=== PATIENT | female | born 1980 ===

== ENCOUNTER 2021-05-21 11:29 | Emergency (ER) | payer OTHER, SELFPAY ==
--- NOTE | ~2021-05-21 | XR_ITS ---
EXAMINATION: XR CHEST CLINICAL INFORMATION: Cough COMPARISON: None TECHNIQUE: Frontal view of the chest was obtained. FINDINGS: No significant abnormality is noted involving the heart, lungs, mediastinum, bony thorax or soft tissues. XR/XR chest 1V IMPRESSION: Unremarkable examination.
[2021-05-21 11:41] VITALS: BP 159/92; PULSE 101; RESP 16; TEMP 36.8; O2SAT 96; BMI 26.5
--- NOTE | 2021-05-21 11:44 | ED.URI ---
HPI - URI/Sore Throat General Chief Complaint: Upper Respiratory Symptoms Stated Complaint: cough Time Seen by Provider: 05/21/21 11:44 Source: patient Mode of arrival: ambulatory Limitations: no limitations History of Present Illness MD elicited complaint: cough, sore throat and other (ear pain) Onset (ago): week(s) (3) Consistency: progressively worsening Severity: moderate Description of mucous: clear Able to tolerate fluids by mouth: Yes Exacerbating factors: swallowing Relieving factors: nothing Associated symptoms: chills, nasal congestion, sore throat and cough Treatments prior to arrival: none Related Data Previous Rx's Medication Instructions Recorded amoxicillin 875 mg-potassium 1 tab PO BID #14 tab 05/21/21 clavulanate 125 mg tablet (Augmentin) benzonatate 100 mg capsule 100 mg PO TID PRN #30 cap 05/21/21 (Tessalon Perlleon) ofloxacin 0.3 % ear drops 10 drp OTIC (EARS) DAILY 7 Days #5 05/21/21 ml prednisone 20 mg tablet 40 mg PO DAILY 5 Days #10 tab 05/21/21 Allergies Allergy/AdvReac Type Severity Reaction Status Date / Time latex [LATEX] Allergy Intermediate CONTACT Unverified 04/06/20 16:51 DERMATITIS Review of Systems Review of Systems: Constitutional : No Weight loss, No Fever, pos Chills, No Fatigue, No Malaise ENT/Mouth : pos sore throat, No Rhinorrhea, pos ear pain Eyes: No Eye Pain, No Swelling, No Redness Cardiovascular : No Chest Pain, No SOB, No Dyspnea on Exertion, No Orthopnea, No Edema, No Palpitations Respiratory : pos Cough, pos Sputum, No Wheezing Gastrointestinal : No Nausea, No Vomiting, No Diarrhea, No Constipation, No abdominal Pain, No Hematochezia, No Melena Genitourinary : No Dysuria, No Urinary Frequency, No Hematuria, Musculoskeletal : No joint pain, No Myalgias, No Joint Swelling Skin : No Skin Lesions, No rash Neuro : No Weakness, No Numbness, No Dizziness, No Headache Psych : No Anxiety/Panic, No Depression Heme/Lymph: No Bruising, No Bleeding,No Lymphadenopathy Endocrine : No Polyuria, No Polydipsia All other systems reviewed and are negative [facility] Past Medical History Attestation statement: The following information was validated with the patient. Medical History No known health problems Social History Social History (Updated 05/21/21 @ 12:08 by Jolene Sebastian DO) Patient Tobacco Use Status: Current everyday Tobacco user Use of substances other than those prescribed or required for medical reasons: No Advance Directives: No Advance Directives Information Provided: No Physical Exam Vital Signs: Vital Signs: Last Vital Signs Temp 98.3 F 05/21/21 11:41 Pulse 101 H 05/21/21 11:41 Resp 16 05/21/21 11:41 BP 159/92 H 05/21/21 11:41 Pulse Ox 96 05/21/21 11:41 Body Mass Index 26.5 Appearance: Alert. Oriented X3. No acute distress. Eyes: Pupils equal, round and reactive to light. ENT: Pharynx mild erythema mild swelling no signs of [employer], handling secretions normal voice, R ear diffuse bulging, loss of landmarks, mod hyperemia to the upper R superior portion of ear drum no hemotympanum noted Neck: Normal inspection. Neck supple. CVS: Normal heart rate and rhythm. Pulses normal. Respiratory: No respiratory distress. Breath sounds normal. Abdomen: Soft and nontender. Skin: Skin warm and dry. Normal skin color. Normal skin turgor. Extremities: No lower extremity edema. No calf ttp Neuro: Oriented X 3. No motor deficit. No sensory deficit. Course Course Course Narrative: will treat as bronchitis and AOM MDM - URI/Sore Throat MDM Narrative Medical decision making narrative: 41 yo female with c/o URI and cough for 3 weeks - sore throat (no concern for deeper space infection) will need strep/covid swab, her R ear has some mild erythema and area of hyperemia noted on superior aspect will treat with oral and gtt for AOM Lab Data Labs: Lab Results 05/21/21 05/21/21 Range/Units 13:04 13:05 COVID-19 (TEJAL) Negative (Negative) COVID-19 Clin Com See Note S. pyogenes GrpA LADY Negative (Negative) Discharge Plan Discharge Clinical Impression: Bronchitis Otitis media Qualifiers: Otitis media type: suppurative Chronicity: acute Laterality: right Recurrence: non-recurrent Spontaneous tympanic membrane rupture: without spontaneous rupture Qualified Code(s): H66.001 - Acute suppurative otitis media without spontaneous rupture of ear drum, right ear Patient Disposition: Home, Self-Care Instructions: How to Use Ear Drops (ED), Ear Infection (ED), Acute Bronchitis (ED) Additional Instructions: return to ED for any worsening symptoms or concerns NEGATIVE COVID NEGATIVE STREP NO WATER IN R EAR FOR 7 DAYS Prescriptions: New amoxicillin-pot clavulanate [Augmentin] 875-125 mg tablet 1 tab PO BID Qty: 14 RF: 0 ofloxacin 0.3 % drops 10 drp otic (ears) DAILY 7 Days Qty: 5 RF: 0 benzonatate [Tessalon Perles] 100 mg capsule 100 mg PO TID PRN (Reason: cough) Qty: 30 RF: 0 prednisone 20 mg tablet 40 mg PO DAILY 5 Days Qty: 10 RF: 0 Stand Alone Forms: Work/School Release
[2021-05-21 13:25] LABS: IDNOW Serial# 08D9AD1C
[2021-05-21 13:26] LABS: Strep A Nucleic Acid Negative (Negative)
[2021-05-21 13:33] LABS: COVID-19 Test Negative (Negative); IDNOW Serial# 9DD0AD1C
[2021-05-21] MEDS: Amoxicillin/Potassium Clav 875 MG TABLET PO (13:47)
== END 2021-05-21 13:50 | disposition home or self-care (01) ==
PROVIDERS: Emergency Provider Emergency Medicine
DX: H66.001 Acute suppurative otitis media without spontaneous rupture of ear drum, right ear (principal); Z20.822 Contact with and (suspected) exposure to COVID-19
CPT/HCPCS: 36415; 71045; 87635; 87651; 99283; 99284

== ENCOUNTER → 2021-12-11 10:06 | Outpatient (BNVA) | payer OTHER, SELFPAY | PROVIDERS: Visit Provider Internal Medicine | DX: Z51.81 Encounter for therapeutic drug level monitoring (principal); F10.10 Alcohol abuse, uncomplicated | CPT/HCPCS: 80305; 99202; 99212 ==

== ENCOUNTER → 2021-12-24 14:37 | Outpatient (BNVA) | payer OTHER, MEDICAID, SELFPAY | PROVIDERS: Visit Provider Internal Medicine | DX: Z51.81 Encounter for therapeutic drug level monitoring (principal); F10.10 Alcohol abuse, uncomplicated | CPT/HCPCS: 80305 ==

== ENCOUNTER → 2022-01-07 15:23 | Outpatient (BNVA) | payer OTHER, MEDICAID, SELFPAY | PROVIDERS: Visit Provider Internal Medicine | DX: Z51.81 Encounter for therapeutic drug level monitoring (principal); F10.10 Alcohol abuse, uncomplicated | CPT/HCPCS: 80305 ==

== ENCOUNTER 2022-01-26 10:55 | Emergency (ER) | payer OTHER, MEDICAID, SELFPAY ==
[2022-01-26 11:05] VITALS: BP 128/78; BP 154/100; PULSE 81; PULSE 96; RESP 18; TEMP 36.4; O2SAT 100; O2SAT 98; BMI 27.1
--- NOTE | 2022-01-26 11:18 | ED_ITS ---
HPI - Alcohol General Chief Complaint: ETOH/Substance Use Stated Complaint: Alcohol withdraw Time Seen by Provider: 01/26/22 11:03 Source: patient and EMS Mode of arrival: EMS Limitations: no limitations History of Present Illness HPI narrative: 42-year-old female with a history of alcohol abuse here seeking detox. Patient says she drinks 1 pt of vodka daily. Her last drink was just prior to arrival. She denies additional substance use. She was taking Vivitrol but stops taking this 1 week ago. She denies suicidal ideations. She has no physical complaints. Related Data Previous Rx's Medication Instructions Recorded folic acid 1 mg tablet 1 mg PO DAILY 30 days #30 tabs 12/11/21 naltrexone microspheres 380 mg 380 mg IM Q4W 30 days #1 ea 12/11/21 intramuscular suspension,extended release (Vivitrol) thiamine HCl (vitamin B1) 50 mg 50 mg PO DAILY #30 tabs 12/11/21 tablet clonidine HCl 0.1 mg tablet 0.1 mg PO TID 7 days #21 tabs 12/27/21 hydroxyzine HCl 25 mg tablet 25 mg PO TID PRN itching 10 days 01/01/22 #30 tabs naltrexone 50 mg tablet 50 mg PO DAILY #30 tabs 01/01/22 Allergies Allergy/AdvReac Type Severity Reaction Status Date / Time latex [LATEX] Allergy Intermediate CONTACT Verified 01/07/22 15:35 DERMATITIS Sulfa (Sulfonamide Allergy Mild acid reflux Verified 01/07/22 15:35 Antibiotics) Review of Systems 2 Review of Systems: Yes all other systems are reviewed and are negative Constitutional: Constitutional: Reports no additional constitutional complaints, Denies body ache(s), Denies chills, Denies fever(s), Denies heada angely(s) and Denies weakness Eyes: Eyes: Reports no additional eye complaints and Denies change in vision ENT: Reports system reviewed and no additional complaints, except as documented, Denies dizziness, Denies headache(s), Denies nasal congestion, Denies nasal discharge and Denies neck pain Cardiovascular: Cardiovascular: Reports no additional cardiovascular c omplaints, Denies chest pain, Denies leg edema and Denies dyspnea Respiratory: Respiratory: Reports no additional respiratory complaints, Denies cough and Denies dyspnea Gastrointestinal: Gastrointestinal: Reports no additional gastrointestinal complaints, Denies abdominal pain, Denies diarrhea, Denies nausea and Denies vomiting Genitourinary: Genitourinary: Reports no additional female genitourinary complaints and Denies urinary incontinence Musculoskeletal: Musculoskeletal: Reports no additional musculoskeletal complaints, Denies back pain, Denies arthralgias, Denies joint swelling, Denies neck pain, Denies numbness and Denies tingling Integumentary/Breasts: Skin/Breast: Reports system reviewed and no additional complaints, except as docu and Denies rash Neurologic: Reports system reviewed and no additional complaints, except as documented, Denies dizziness, Denies headache(s), Denies numbness, Denies tingling and Denies weakness PMFSH Past Medical History Attestation statement: The following information was validated with the patient. Source: old records reviewed and nursing notes reviewed Medical History Alcohol abuse No known health problems Social History Social History Alcohol intake: never Patient Tobacco Use Status: Current everyday Tobacco user Advance Directives: No Advance Directives Information Provided: No Physical Exam ED Vital Signs: Vital Signs - 24 hr 01/26/22 11:05 01/26/22 11:32 01/26/22 14:00 Temperature 97.5 F 98.2 F Pulse Rate 81 77 69 Respiratory Rate 18 18 16 Blood Pressure 128/78 130/96 H Pulse Oximetry 100 97 92 Oxygen Delivery Method Room Air Room Air Room Air BMI result Body Mass Index 27.1 Const General: anxious Orientation/consciousness: patient oriented x3 Limitations: no limitations [facility] Head: Yes normal to inspection Ears: hearing grossly normal bilaterally Eyes General: appearance normal, both eyes and all related structures Pupils: Equal, round and reactive pupils present Neck Neck: Yes normal visual inspection Chest Chest palpation & inspection: normal inspection of the chest Resp Effort & Inspection: normal respiratory effort Auscultation: clear to auscultation bilaterally Cardio Rate: regular rate Rhythm: regular rhythm Peripheral pulses: Peripheral pulses 2+ throughout GI Inspection: Yes normal to inspection Palpation (GI): Soft to palpation and nontender Skin General skin exam: no rashes or lesions noted Neuro General: patient oriented x3 and moves all extremities Cranial nerves: Yes Equal, round and reactive pupils present Cognition (Neuro): normal cognition Extrem General: Yes normal to inspection Course Course Course Narrative: [id number] 8 per nursing. will give ativan 1mg Reevaluation(s) Reevaluation #1: Reviewed labs which show elevated AST and ALT which are from alcohol use. Sodium 147. Likely mild dehydration. All other labs unremarkable. Patient has received 1 L of IV fluid. I spoke to our recovery assistant. Patient hopefully wi ll have a bed at [facility]. She does need to do a an intake Reevaluation #2: Patient did intake with [facility] detox. The care team arranged transportation and she was discharged to detox. She walked out of the emergency room with a steady gait. Her vitals are stable. She is alert and oriented. MDM - Alcohol MDM Narrative Medical decision making narrative: 42-year-old female here seeking detox for alcohol use disorder. No suicidal thoughts No physical complaints No concern for acute ingestion or trauma Will need labs, drug screen, COVID screen. Once medically cleared will need recovery assistant involvement Medical Records Attestation: I reviewed the patient's medical records. Lab Data Attestation: I reviewed the patient's lab results. Result diagrams: 01/26/22 11:57 01/26/22 11:57 Labs: Lab Results 01/26/22 01/26/22 01/26/22 Range/Units 11:57 11:57 11:57 WBC 8.8 (4.8-10.8) X10*3/uL RBC 4.21 (4.20-5.50) X10*6/uL Hgb 15.2 (12.0-16.0) g/dl Hct 42.3 (37.0-47.0) % MCV 100.5 H (80.0-98.0) fL MCH 36.1 H (27.0-33.0) pg MCHC 35.9 H (31.0-35.0) g/dl RDW 12.9 (11.0-16.0) % Plt Count 229 (160-400) X10*3/uL MPV 9.5 (9.4-12.3) fL Immature Gran % (Auto) 0.3 (0.0-0.4) % Neut % (Auto) 53.1 (45-73) % Lymph % (Auto) 36.7 (20-40) % [place] % (Auto) 5.9 (2-11) % Eos % (Auto) 3.1 (0-4) % Baso % (Auto) 0.9 (0-2) % Lymph # (Auto) 3.2 (1.2-4.9) X10*3/uL [place] # (Auto) 0.5 (0.1-1.2) X10*3/uL Eos # (Auto) 0.3 (0.0-0.4) X10*3/uL Baso # (Auto) 0.1 (0.0-0.2) X10*3/uL Abs Immat Gran (auto) 0.03 (0.00-0.03) X10*3/uL Absolute Neuts (auto) 4.7 (2.0-8.3) x10*3/uL Absolute Nucleated RBC 0.000 (0.0-0.012) X10*3/uL Nucleated RBC % (auto) 0.0 (0.0-0.2) /100WBC Sodium 147 H (135-145) mmol/L Potassium 3.6 (3.3-5.1) mmol/L Chloride 106 (96-108) mmol/L Carbon Dioxide 23 (22-29) mmol/L Anion Gap 22 H (12-20) BUN 8 L (9-16) mg/dL Creatinine 0.75 (0.5-1.4) mg/dL Estim Creat Clear Calc 86.0 Estimated GFR > 60 Random Glucose 99 (60-115) mg/dL Calcium 9.1 (8.4-10.2) mg/dL Magnesium 2.0 (1.6-2.6) mg/dL Total Bilirubin 0.4 (0.0-1.0) mg/dL Direct Bilirubin 0.2 (0.0-0.5) mg/dL AST 158 H (5-31) U/L ALT 131 H (0-31) U/L Alkaline Phosphatase 81 (39-117) U/L Total Protein 7.2 (6.5-8.0) g/dL Albumin 4.5 (3.5-5.0) g/dL Urine Test (NEGATIVE) Urine Opiates Screen (Not Detect) Urine Fentanyl Screen (Not Detect) Ur Barbiturates Screen (Not Detect) Ur Phencyclidine Scrn (Not Detect) Ur Amphetamines Screen (Not Detect) U Benzodiazepines Scrn (Not Detect) Urine Cocaine Screen (Not Detect) U Marijuana (THC) Screen (Not Detect) Ethyl Alcohol 376 H* mg/dL COVID-19 (TEJAL) (Negative) COVID-19 Clin Com 01/26/22 01/26/22 01/26/22 Range/Units 11:57 11:57 11:58 WBC (4.8-10.8) X10*3/uL RBC (4.20-5.50) X10*6/uL Hgb (12.0-16.0) g/dl Hct (37.0-47.0) % MCV (80.0-98.0) fL MCH (27.0-33.0) pg MCHC (31.0-35.0) g/dl RDW (11.0-16.0) % Plt Count (160-400) X10*3/uL MPV (9.4-12.3) fL Immature Gran % (Auto) (0.0-0.4) % Neut % (Auto) (45-73) % Lymph % (Auto) (20-40) % [place] % (Auto) (2-11) % Eos % (Auto) (0-4) % Baso % (Auto) (0-2) % Lymph # (Auto) (1.2-4.9) X10*3/uL [place] # (Auto) (0.1-1.2) X10*3/uL Eos # (Auto) (0.0-0.4) X10*3/uL Baso # (Auto) (0.0-0.2) X10*3/uL Abs Immat Gran (auto) (0.00-0.03) X10*3/uL Absolute Neuts (auto) (2.0-8.3) x10*3/uL Absolute Nucleated RBC (0.0-0.012) X10*3/uL Nucleated RBC % (auto) (0.0-0.2) /100WBC Sodium (135-145) mmol/L Potassium (3.3-5.1) mmol/L Chloride (96-108) mmol/L Carbon Dioxide (22-29) mmol/L Anion Gap (12-20) BUN (9-16) mg/dL Creatinine (0.5-1.4) mg/dL Estim Creat Clear Calc Estimated GFR Random Glucose (60-115) mg/dL Calcium (8.4-10.2) mg/dL Magnesium (1.6-2.6) mg/dL Total Bilirubin (0.0-1.0) mg/dL Direct Bilirubin (0.0-0.5) mg/dL AST (5-31) U/L ALT (0-31) U/L Alkaline Phosphatase (39-117) U/L Total Protein (6.5-8.0) g/dL Albumin (3.5-5.0) g/dL Urine Test NEGATIVE (NEGATIVE) Urine Opiates Screen Not Detected (Not Detect) Urine Fentanyl Screen Not Detected (Not Detect) Ur Barbiturates Screen Not Detected (Not Detect) Ur Phencyclidine Scrn Not Detected (Not Detect) Ur Amphetamines Screen Not Detected (Not Detect) U Benzodiazepines Scrn Not Detected (Not Detect) Urine Cocaine Screen Not Detected (Not Detect) U Marijuana (THC) Screen POSITIVE H (Not Detect) Ethyl Alcohol mg/dL COVID-19 (TEJAL) Negative (Negative) COVID-19 Clin Com See Note Discharge Plan Discharge Clinical Impression: Alcohol use disorder, moderate, dependence Patient Disposition: Xfer Other Transfer Details: [facility] detox Instructions: Alcohol Use Disorder (ED) Additional Instructions: Go direct to detox Prescriptions: No Action clonidine HCl 0.1 mg tablet 0.1 mg PO TID 7 Days Qty: 21 0RF hydroxyzine HCl 25 mg tablet 25 mg PO TID PRN (Reason: itching) 10 Days Qty: 30 0RF naltrexone 50 mg tablet 50 mg PO DAILY Qty: 30 0RF thiamine HCl (vitamin B1) 50 mg tablet 50 mg PO DAILY Qty: 30 5RF folic acid 1 mg tablet 1 mg PO DAILY 30 Days Qty: 30 5RF Vivitrol 380 mg suspension,extended rel recon 380 mg IM Q4W 30 Days Qty: 1 1RF Referrals: Physician,None [Primary Care Provider] -
[2022-01-26 11:32] VITALS: BP 130/96; PULSE 77; RESP 18; TEMP 36.8; O2SAT 97
[2022-01-26] MEDS: LORazepam 2 MG/ML VIAL 1 MG IVPUSH (11:52)
[2022-01-26] MEDS: 0.9 % Sodium Chloride 1,000 ML 999 ML IV (11:59)
--- NOTE | 2022-01-26 12:03 | PC.NURSE ---
PT IS BEING RUDE TO STAFF STATING WE ARE NOT DOING ANYTHIG FOR HER AND THAT'S WHY SHE CAME BY AMB, PT IS DEMANDING IVF AND MEDICATIONS, STATES WE DON'T KNOW ANYTHING AND SHE IS IN WITHDRAWAL AND NEEDS DETOX. LABS HAVE BEEN COMPLEATED IVF DONE AND ATIVAN GIVEN.
[2022-01-26 12:06] LABS: MANUAL DIFF FLAG NO
[2022-01-26 12:08] LABS: Basophils Absolute Auto 0.1 X10*3/uL (0.0-0.2); Basophils Percent Auto 0.9 % (0-2); Eosinophils Absolute Auto 0.3 X10*3/uL (0.0-0.4); Eosinophils Percent Auto 3.1 % (0-4); Hematocrit 42.3 % (37.0-47.0); Hemoglobin 15.2 g/dl (12.0-16.0); Imm Gran Abs Auto 0.03 X10*3/uL (0.00-0.03); Imm Gran Pct Auto 0.3 % (0.0-0.4); Lymphocytes Absolute Auto 3.2 X10*3/uL (1.2-4.9); Lymphocytes Percent Auto 36.7 % (20-40); Mean Corpuscular HGB Conc 35.9 g/dl (31.0-35.0); Mean Corpuscular Hemoglobin 36.1 pg (27.0-33.0); Mean Corpuscular Volume 100.5 fL (80.0-98.0); Mean Platelet Volume 9.5 fL (9.4-12.3); Monocytes Absolute Auto 0.5 X10*3/uL (0.1-1.2); Monocytes Percent Auto 5.9 % (2-11); Neutrophils Absolute Auto 4.7 x10*3/uL (2.0-8.3); Neutrophils Percent Auto 53.1 % (45-73); Platelet Count 229 X10*3/uL (160-400); Red Blood Count 4.21 X10*6/uL (4.20-5.50); Red Cell Distribution Width 12.9 % (11.0-16.0); White Blood Count 8.8 X10*3/uL (4.8-10.8)
[2022-01-26 12:10] LABS: UPreg QC Valid YES; Urine Pregnancy NEGATIVE (NEGATIVE)
[2022-01-26 12:22] LABS: COVID-19 Test Negative (Negative)
[2022-01-26 12:28] LABS: Ethanol 376 mg/dL
[2022-01-26 12:31] LABS: Amphetamine Screen Urine Not Detected (Not Detect); Barbiturates, Urine Not Detected (Not Detect); Benzodiazepines Screen Urine Not Detected (Not Detect); Cannabinoid Screen Urine POSITIVE (Not Detect); Cocaine Screen Urine Not Detected (Not Detect); Fentanyl, urine Not Detected (Not Detect); Opiate Screen Urine Not Detected (Not Detect); Phencyclidine Screen Urine Not Detected (Not Detect)
[2022-01-26 12:34] LABS: Alanine Aminotransferase 131 U/L (0-31); Albumin Level 4.5 g/dL (3.5-5.0); Alkaline Phosphatase 81 U/L (39-117); Anion Gap 22 (12-20); Aspartate Amino Transferase 158 U/L (5-31); Bilirubin Direct 0.2 mg/dL (0.0-0.5); Bilirubin Total 0.4 mg/dL (0.0-1.0); Blood Urea Nitrogen 8 mg/dL (9-16); Calcium 9.1 mg/dL (8.4-10.2); Carbon Dioxide 23 mmol/L (22-29); Chloride 106 mmol/L (96-108); Estimated Glomerular Filt Rate > 60; Glucose Random 99 mg/dL (60-115); Potassium 3.6 mmol/L (3.3-5.1); Sodium 147 mmol/L (135-145); Total Protein 7.2 g/dL (6.5-8.0)
[2022-01-26 14:00] VITALS: PULSE 69; RESP 16; O2SAT 92
--- NOTE | 2022-01-26 14:27 | PC.NURSE ---
Patient arrived seeking detox. Agitated and reporting I am going through withdrawal . Ativan provided. Patient is sleeping. Seen by care team for detox placement. Patient denies SI/HI.
--- NOTE | 2022-01-26 18:15 | MHC.RECOVSUP ---
Recovery Support note: Patient is a 42 year old Tajik speaking female who presented to [facility] ED seeking detox. Patient reports she has been binge drinking for 7 days and wants to break this cycle. Patient was referred to [facility] and accepted for admission. Patient did not want to wait in the hospital and requested discharge. Plan for refinery operator light ends recovery to call patient at [phone] to coordinate Lyft to facility. Discussed case with ED provider.
== END 2022-01-26 16:44 | disposition other institution (70) ==
PROVIDERS: Nurse Practitioner Family; Emergency Provider Emergency Medicine
DX: F10.239 Alcohol dependence with withdrawal, unspecified (principal); Y90.8 Blood alcohol level of 240 mg/100 ml or more; Z79.899 Other long term (current) drug therapy; Z20.822 Contact with and (suspected) exposure to COVID-19
CPT/HCPCS: 36415; 80048; 80076; 80307; 81025; 82077; 83735; 85025; 87635; 96361; 96374; 99284; J2060

== ENCOUNTER 2022-02-05 14:06 | Outpatient (REF) | payer OTHER, MEDICAID, SELFPAY ==
[2022-02-05 15:56] LABS: Alanine Aminotransferase 165 U/L (0-31); Albumin Level 4.2 g/dL (3.5-5.0); Alkaline Phosphatase 67 U/L (39-117); Aspartate Amino Transferase 38 U/L (5-31); Bilirubin Direct < 0.2 mg/dL (0.0-0.5); Bilirubin Total 0.2 mg/dL (0.0-1.0); Total Protein 6.8 g/dL (6.5-8.0)
== END 2022-02-05 14:07 | disposition home or self-care (01) ==
LOC: HO.LAB 14:06
PROVIDERS: Visit Provider Internal Medicine
DX: F10.10 Alcohol abuse, uncomplicated (principal); Z51.81 Encounter for therapeutic drug level monitoring
CPT/HCPCS: 36415; 80076; 80305

== ENCOUNTER → 2022-03-05 10:13 | Outpatient (BNVA) | payer OTHER, SELFPAY | PROVIDERS: Visit Provider Nurse Practitioner Psychiatric/Mental Health | DX: F10.20 Alcohol dependence, uncomplicated (principal) | CPT/HCPCS: 99212 ==

== ENCOUNTER → 2022-03-12 09:24 | Outpatient (BNVA) | payer OTHER, SELFPAY | PROVIDERS: Visit Provider Nurse Practitioner Psychiatric/Mental Health | DX: F10.20 Alcohol dependence, uncomplicated (principal); Z51.81 Encounter for therapeutic drug level monitoring; Z32.02 Encounter for pregnancy test, result negative | CPT/HCPCS: 80305; 81025; 96372; 99212 ==

== ENCOUNTER → 2022-04-09 08:56 | Outpatient (BNVA) | payer OTHER, SELFPAY | PROVIDERS: Visit Provider Nurse Practitioner Psychiatric/Mental Health | DX: Z51.81 Encounter for therapeutic drug level monitoring (principal); F10.20 Alcohol dependence, uncomplicated | CPT/HCPCS: 80305; 81025; 96372; 99212 ==

== ENCOUNTER 2022-04-19 07:35 | Outpatient (REF) | payer OTHER, SELFPAY ==
[2022-04-19 07:57] LABS: COVID-19 Test Positive (Negative); IDNOW Serial# 55D5AD1C
== END 2022-04-19 07:36 | disposition home or self-care (01) ==
LOC: HO.LAB 07:35
PROVIDERS: Visit Provider Internal Medicine
DX: Z20.822 Contact with and (suspected) exposure to COVID-19 (principal)
CPT/HCPCS: 87635; C9803

== ENCOUNTER 2022-04-27 13:21 | Emergency (ER) | payer OTHER, SELFPAY ==
[2022-04-27 13:43] VITALS: BP 109/88; BP 139/72; PULSE 101; PULSE 93; RESP 18; TEMP 37.1; O2SAT 96; O2SAT 99; BMI 27.4
--- NOTE | 2022-04-27 14:20 | PC.NURSE ---
pt currently refusing labs at this time, wants to speak with provider
--- NOTE | 2022-04-27 14:29 | PC.NURSE ---
pt is verbally abusive to staff and yelling, security was called, Dr. Rowell at bedside and spoke with daughter on the phone.
--- NOTE | 2022-04-27 14:38 | ED.ALCOHOL ---
HPI - Alcohol General Chief Complaint: Psychiatric Symptoms Stated Complaint: crisis Time Seen by Provider: 04/27/22 13:51 Source: patient, family (Spoke with daughter over the phone), EMS and old records reviewed Mode of arrival: EMS Limitations: altered mental status (Likely due to intoxication) History of Present Illness HPI narrative: 42-year-old female came in by ambulance intoxicated, patient was drinking home admitted to drinking lots of alcohol today, was speaking with her daughter over the phone made a gesture of does not want to be around daughter called 911 who came and picked up the patient from home, on arrival patient appear alcohol intoxicated, belligerent, using abusive language to the staff patient is not redirectable, patient throw food tray on the staff and on the floor, I spoke with the daughter over the phone who also and ER nurse explained to her the need for chemical and likely physical restraint if needed at this point patient will be Section 12 and will be given Zyprexa IM. Patient is well known to have a severe alcohol dependence. Related Data Previous Rx's Medication Instructions Recorded clonidine HCl 0.1 mg tablet 0.1 mg PO TID 7 days #21 tabs 12/27/21 hydroxyzine HCl 25 mg tablet 25 mg PO TID PRN itching 10 days 01/01/22 #30 tabs naltrexone 50 mg tablet 50 mg PO DAILY #30 tabs 03/01/22 folic acid 1 mg tablet 1 mg PO DAILY 30 days #30 tabs 03/12/22 thiamine HCl (vitamin B1) 50 mg 50 mg PO DAILY #30 tabs 03/12/22 tablet naltrexone microspheres 380 mg 380 mg IM Q4W 30 days #1 ea 04/09/22 intramuscular suspension,extended release (Vivitrol) Allergies Allergy/AdvReac Type Severity Reaction Status Date / Time latex [LATEX] Allergy Intermediate CONTACT Verified 04/09/22 09:00 DERMATITIS Sulfa (Sulfonamide Allergy Mild acid reflux Verified 04/09/22 09:00 Antibiotics) Review of Systems Review of Systems: Yes Unobtainable due to mental status PMFSH Past Medical History Medical History Alcohol abuse No known health problems Social History Social History Alcohol intake: never Patient Tobacco Use Status: Current everyday Tobacco user Advance Directives: No Advance Directives Information Provided: No Physical Exam ED Vital Signs: Vital Signs - 24 hr 04/27/22 13:43 Temperature 98.7 F Pulse Rate 93 Respiratory Rate 18 Blood Pressure 109/88 Pulse Oximetry 96 Oxygen Delivery Method Room Air BMI result Body Mass Index 27.4 Vital signs have been reviewed as appeared to be correct. Blood pressure normal. Heart rate normal. Respiration rate normal. Temperature normal. Oxygen saturation normal. Appearance: Intoxicated, agitated, belligerent, using inappropriate abusive language toward the staff. Head: Normal external exam. Eyes: PERRLA. EOMI. Conjunctiva and sclera normal. Eyelids normal. ENT: TM's Normal. Pharynx normal. Uvula midline. Moist mucous membranes. No trismus noted. No drooling noted. No muffled voice noted. Neck: Normal inspection. Neck supple. FROM. No adenopathy. Thyroid Normal. No meningeal signs. No neck mass noted. CVS: Normal heart rate and rhythm. Heart sound normal. No murmurs noted. Pulses normal throughout. Respiratory: No respiratory distress. Painless inspiration. Breath sounds normal. No wheezes/rales/rhonchi noted. Chest nontender. No accessory muscle usage noted or decreased air movement noted. Abdomen: Soft and nontender. Bowel sounds normal in all 4 quadrants. No distention noted. No organomegaly noted. No visible injury noted. Back: No CVA tenderness. Full range of motion noted. Skin: Skin warm and dry. Normal skin color. Normal skin turgor. No rashes/lesions/lacerations noted. Extremities: No lower extremity edema. Extremities exhibit normal range of motion. Extremities nontender. Neuro: Intoxicated Cranial nerve exam: II-XII are grossly intact No motor deficit. No sensory deficit. Reflexes normal. Course Course Course Narrative: 42-year-old female with history of severe alcohol independency, came in in alcohol intoxication, patient has been acting inappropriately and aggressive with the staff, spoke with the daughter over the phone the patient mentioned on the phone that she does not want to be around with vague suicidal gesturing, given the patient behavior patient needed a chemical restraint for safety of the patient and the staff. Patient will be section 12 and will be given Zyprexa IM. Reevaluation(s) Reevaluation #1: Patient is of 4 points restraining, patient is more calmer, patient now can carry a good conversation, patient is coherent, awake, alert, oriented x4, patient declined SI, declined HI, no hallucination. Patient's daughter at the bedside who is willing to take the patient home feel safe to discharge the patient with daughter. Patient is offering apologies to the staff for being belligerent and aggressive behavior. Time: 16:28 Discharge Plan Discharge Clinical Impression: Alcohol abuse Patient Disposition: Home, Self-Care Instructions: Abuse of Alcohol (ED) Additional Instructions: Seek immediate medical attention if he feels suicidal, or hearing voices, please call the detox programs number the provided to you try to enroll into detox program.. Prescriptions: No Action clonidine HCl 0.1 mg tablet 0.1 mg PO TID 7 Days Qty: 21 0RF hydroxyzine HCl 25 mg tablet 25 mg PO TID PRN (Reason: itching) 10 Days Qty: 30 0RF naltrexone 50 mg tablet 50 mg PO DAILY Qty: 30 0RF folic acid 1 mg tablet 1 mg PO DAILY 30 Days Qty: 30 5RF thiamine HCl (vitamin B1) 50 mg tablet 50 mg PO DAILY Qty: 30 5RF Vivitrol 380 mg suspension,extended rel recon 380 mg IM Q4W 30 Days Qty: 1 5RF Referrals: Physician,None [Primary Care Provider] -
[2022-04-27] MEDS: OLANZapine 10 MG VIAL IM (14:55)
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
--- NOTE | 2022-04-27 15:04 | MHC.CARE ---
Addendum entered by Pippa Cruz, [facility] 04/27/22 17:09: Documentation clarification per nursing Dr. Rowell requested Pt to be placed on section 12 Original Note: CARE Team attempted to provided education to Pt regarding the crisis process. Pt became agitated swearing at t/w you are a fucking bitch . Pt pushed food tray agresively in the direction of t/w and continued to be verbally aggressive. At this time Pt is not appropriate to engage with clinically due to level of Pts dysregulation. Plan reviewed Dr. Rowell. Pt to remain on Section 12 A for evaluation, once medially cleared.
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
--- NOTE | 2022-04-27 15:51 | MHC.CARE ---
Care Team completed [facility] smart sheet.
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
== END 2022-04-27 18:53 | disposition home or self-care (01) ==
PROVIDERS: Emergency Provider Emergency Medicine
DX: F10.129 Alcohol abuse with intoxication, unspecified (principal); Y90.9 Presence of alcohol in blood, level not specified; R45.6 Violent behavior; F17.200 Nicotine dependence, unspecified, uncomplicated
CPT/HCPCS: 96372; 99283; 99284

== ENCOUNTER 2022-12-22 09:07 | Emergency (ER) | payer OTHER, SELFPAY ==
[2022-12-22 09:14] VITALS: BP 143/81; PULSE 91; O2SAT 98
[2022-12-22 09:17] VITALS: BP 128/86; PULSE 91; RESP 19; TEMP 36.6; O2SAT 99; BMI 26.2
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
--- NOTE | 2022-12-22 09:45 | PC.NURSE ---
after being seen by the provider, the pt was being registered at the bedside and jumped up and was yelling about it taking too long, pt swore mult times and continued to yell on her way out the door, speech clear, steady gait
== END 2022-12-22 09:54 | disposition left against medical advice (07) ==
PROVIDERS: Emergency Provider Internal Medicine
DX: S01.81XA Laceration without foreign body of other part of head, initial encounter (principal); S09.93XA Unspecified injury of face, initial encounter; R51.9 Headache, unspecified; Y04.2XXA Assault by strike against or bumped into by another person, initial encounter; Y93.9 Activity, unspecified; Y92.9 Unspecified place or not applicable; Y99.9 Unspecified external cause status; Z79.899 Other long term (current) drug therapy; F17.200 Nicotine dependence, unspecified, uncomplicated; Z71.6 Tobacco abuse counseling
CPT/HCPCS: 99281; 99283; 99284

== ENCOUNTER 2023-04-01 07:52 | Emergency (ER) | payer BC, OTHER, SELFPAY ==
--- NOTE | ~2023-04-01 | XR_ITS ---
EXAMINATION: XR CHEST CLINICAL INFORMATION: Cough COMPARISON: 05/21/2021 TECHNIQUE: Frontal view of the chest was obtained. FINDINGS: Lungs are well expanded and clear. No consolidation, pleural effusion or pneumothorax. The old hazy opacities at the medial bases correspond to the normal paracardiac fat pads. Cardiac silhouette has normal size and contour. The skeletal structures are unremarkable. XR/XR chest 1V IMPRESSION: No evidence of pneumonia. No acute cardiopulmonary findings.
--- NOTE | 2023-04-01 07:56 | ECG_ITS ---
Test Reason : chest pain Blood Pressure : / mmHG Vent. Rate : 080 BPM Atrial Rate : 080 BPM P-R Int : 128 ms QRS Dur : 076 ms QT Int : 402 ms P-R-T Axes : 019 053 048 degrees QTc Int : 463 ms Normal sinus rhythm Normal ECG No previous ECGs available Referred By: Generic ED Physician Electronically Signed By:TERI RHODES
[2023-04-01 08:08] VITALS: BP 114/71; PULSE 79; RESP 16; TEMP 36.6; O2SAT 98; BMI 28.7
[2023-04-01 08:23] LABS: MANUAL DIFF FLAG NO
[2023-04-01 08:25] LABS: Basophils Absolute Auto 0.1 X10*3/uL (0.0-0.2); Basophils Percent Auto 0.6 % (0-2); Eosinophils Absolute Auto 0.6 X10*3/uL (0.0-0.4); Eosinophils Percent Auto 6.2 % (0-4); Hematocrit 40.1 % (37.0-47.0); Imm Gran Abs Auto 0.02 X10*3/uL (0.00-0.03); Imm Gran Pct Auto 0.2 % (0.0-0.4); Lymphocytes Percent Auto 20.9 % (20-40); Mean Corpuscular HGB Conc 34.9 g/dl (31.0-35.0); Mean Corpuscular Hemoglobin 37.2 pg (27.0-33.0); Mean Corpuscular Volume 106.6 fL (80.0-98.0); Mean Platelet Volume 9.3 fL (9.4-12.3); Monocytes Absolute Auto 0.7 X10*3/uL (0.1-1.2); Neutrophils Absolute Auto 6.1 x10*3/uL (2.0-8.3); Neutrophils Percent Auto 65.1 % (45-73); Platelet Count 224 X10*3/uL (160-400); Red Blood Count 3.76 X10*6/uL (4.20-5.50); Red Cell Distribution Width 13.5 % (11.0-16.0); White Blood Count 9.3 X10*3/uL (4.8-10.8)
[2023-04-01 08:42] LABS: Alanine Aminotransferase 14 U/L (0-31); Albumin Level 4.1 g/dL (3.5-5.0); Alkaline Phosphatase 54 U/L (39-117); Anion Gap 12 (12-20); Aspartate Amino Transferase 13 U/L (5-31); Bilirubin Total 0.3 mg/dL (0.0-1.0); Blood Urea Nitrogen 9 mg/dL (9-16); Calcium 9.5 mg/dL (8.4-10.2); Carbon Dioxide 21 mmol/L (22-29); Chloride 111 mmol/L (96-108); Creatinine Clr Calc Pharmacy 88.7; Estimated Glomerular Filt Rate > 60; Glucose Random 106 mg/dL (60-115); Potassium 4.3 mmol/L (3.3-5.1); Sodium 140 mmol/L (135-145); Total Protein 6.8 g/dL (6.5-8.0)
--- NOTE | 2023-04-01 09:33 | ED.GENADULT ---
HPI - General Adult General Chief complaint: Upper Respiratory Symptoms Stated complaint: R side chest pain/cough Time Seen by Provider: 04/01/23 09:11 Source: patient History of Present Illness HPI narrative: 43 year old female with history of anxiety, AUD and finished detox Friday, presents to ED for evaluation of productive cough for 3 weeks, as well as right-sided, constant chest pain for 1.5 weeks. Says she has been coughing up thick, brown/green/yellow sputum. Reports right-sided chest pain just under her breast, wrapping around rib, like a dull pressure at rest, but becomes sharp with cough, inspiration, or movement. Also reports feeling occasional tiny pops when she breathes in. Reports headache, sinus pressure, nasal congestion, sweats, diarrhea, bilateral LE tightness. Reports that she was evaluated at detox and given 3 out of 5 doses of azithromycin before being discharged. Reports 15 pack-year smoking history, maternal family history of from [place] at age 61. Denies chills, sore throat, nausea, vomiting, urinary symptoms. Denies recent travel, sick contacts, hormone use. MD complaint: cough, chest pain Onset (ago): week(s) Location: chest Quality: aching, sharp, dull and constant Pain Consistency: constant Relieving factors: rest Exacerbating factors: movement and other (Cough, inspiration) Associated symptoms: chest pain, cough, fever/chills and headaches Treatments prior to arrival: other (Azithromycin) Related Data Previous Rx's Medication Instructions Recorded clonidine HCl 0.1 mg tablet 0.1 mg PO TID 7 days #21 tabs 12/27/21 hydroxyzine HCl 25 mg tablet 25 mg PO TID PRN itching 10 days 01/01/22 #30 tabs naltrexone 50 mg tablet 50 mg PO DAILY #30 tabs 03/01/22 folic acid 1 mg tablet 1 mg PO DAILY 30 days #30 tabs 03/12/22 thiamine HCl (vitamin B1) 50 mg 50 mg PO DAILY #30 tabs 03/12/22 tablet naltrexone microspheres 380 mg 380 mg IM Q4W 30 days #1 ea 04/09/22 intramuscular suspension,extended release (Vivitrol) amoxicillin 875 mg-potassium 1 tab PO BID #14 tabs 04/01/23 clavulanate 125 mg tablet prednisone 20 mg tablet 40 mg (2 x 20 mg) PO DAILY #10 tabs 04/01/23 Allergies Allergy/AdvReac Type Severity Reaction Status Date / Time latex [LATEX] Allergy Intermediate CONTACT Verified 04/09/22 09:00 DERMATITIS Sulfa (Sulfonamide Allergy Mild acid reflux Verified 04/09/22 09:00 Antibiotics) Review of Systems Review of Systems: Yes all other systems are reviewed and are negative [facility] Past Medical History Medical History Alcohol abuse No known health problems Social History Social History Alcohol intake: never Patient Tobacco Use Status: Current everyday Tobacco user Advance Directives: Yes Advance Directives Information Provided: Yes Advance Directives on File: No Physical Exam ED Vital Signs: Vital Signs - 24 hr 04/01/23 08:08 Temperature 97.9 F Pulse Rate 79 Respiratory Rate 16 Blood Pressure 114/71 Pulse Oximetry 98 Oxygen Delivery Method Room Air BMI result Body Mass Index 28.7 Const General: cooperative, healthy appearing, comfortable and no acute distress Nutritional Appearance: average body habitus Orientation/consciousness: patient oriented x3 Limitations: no limitations HENMT Head: Yes normal to inspection Ears: hearing grossly normal bilaterally Face and sinus: Yes face symmetric and Yes sinus tenderness Chest Chest palpation & inspection: normal inspection of the chest, normal palpation of entire chest wall, localized rib tenderness with anteroposterior compression (Rib pain reproducible with palpation.) and No rash Resp Effort & Inspection: normal respiratory effort and able to speak in complete sentences Auscultation: clear to auscultation bilaterally Cardio Rate: regular rate Rhythm: regular rhythm Peripheral pulses: dorsalis pedis present Skin General skin exam: no rashes or lesions noted Neuro General: patient oriented x3 Extrem General: Yes normal to inspection and Yes no pedal edema Medical Decision Making Medical Decision Making MDM Narrative: 43 year old female with history of anxiety, AUD and finished detox Friday, presents to ED for evaluation of productive cough for 3 weeks, as well as right-sided, constant chest pain for 1.5 weeks. On physical exam, sinus tenderness, no lower extremity edema, lungs clear to auscultation bilaterally, no rashes. Patient speaking in full sentences. Plan: labs, EKG, CXR, COVID & influenza. VSS, labs reassuring, CXR negative for any acute process, EKG unremarkable, COVID & influenza negative At this time patient is stable for discharge home with treatment for bronchitis. Will start Augmentin and prednisone. She is stable for discharge home. Return precautions were discussed. Differential Diagnosis Differential Diagnoses: The differential diagnosis associated with the presentation includes Acute bronchitis, aspiration pneumonia, viral respiratory illness, chostocondritis, PE, DVT, PTX, HI. Admission/Observation Consideration of admission/observation: Escalation of care including admission/observation considered Lab Data [facility] Lab Attestation statement: I reviewed the patient's lab results. 04/01/23 08:16 04/01/23 08:16 Labs: Lab Results 04/01/23 04/01/23 Range/Units 08:16 10:32 WBC 9.3 (4.8-10.8) X10*3/uL RBC 3.76 L (4.20-5.50) X10*6/uL Hgb 14.0 (12.0-16.0) g/dl Hct 40.1 (37.0-47.0) % MCV 106.6 H (80.0-98.0) fL MCH 37.2 H (27.0-33.0) pg MCHC 34.9 (31.0-35.0) g/dl RDW 13.5 (11.0-16.0) % Plt Count 224 (160-400) X10*3/uL MPV 9.3 L (9.4-12.3) fL Immature Gran % (Auto) 0.2 (0.0-0.4) % Neut % (Auto) 65.1 (45-73) % Lymph % (Auto) 20.9 (20-40) % [place] % (Auto) 7.0 (2-11) % Eos % (Auto) 6.2 H (0-4) % Baso % (Auto) 0.6 (0-2) % Lymph # (Auto) 2.0 (1.2-4.9) X10*3/uL [place] # (Auto) 0.7 (0.1-1.2) X10*3/uL Eos # (Auto) 0.6 H (0.0-0.4) X10*3/uL Baso # (Auto) 0.1 (0.0-0.2) X10*3/uL Abs Immat Gran (auto) 0.02 (0.00-0.03) X10*3/uL Absolute Neuts (auto) 6.1 (2.0-8.3) x10*3/uL Absolute Nucleated RBC 0.000 (0.0-0.012) X10*3/uL Nucleated RBC % (auto) 0.0 (0.0-0.2) /100WBC Sodium 140 (135-145) mmol/L Potassium 4.3 (3.3-5.1) mmol/L Chloride 111 H (96-108) mmol/L Carbon Dioxide 21 L (22-29) mmol/L Anion Gap 12 (12-20) BUN 9 (9-16) mg/dL Creatinine 0.74 (0.5-1.4) mg/dL Estim Creat Clear Calc 88.7 Estimated GFR > 60 Random Glucose 106 (60-115) mg/dL Calcium 9.5 (8.4-10.2) mg/dL Total Bilirubin 0.3 (0.0-1.0) mg/dL AST 13 (5-31) U/L ALT 14 (0-31) U/L Alkaline Phosphatase 54 (39-117) U/L Total Protein 6.8 (6.5-8.0) g/dL Albumin 4.1 (3.5-5.0) g/dL COVID-19 (TEJAL) Negative (Negative) COVID-19 Clin Com See Note Influenza Type A (LADY) Negative (Negative) Influenza Type B (LADY) Negative (Negative) Influenza A & B Note See Note Independent Interpretation I performed an independent interpretation of an: EKG and Plain X-Ray Interpretation: EKG: NSR with ventricular rate of 80 bpm, p waves before every QRS, no STEMI or NSTEMI I have reviewed patient's imaging and I am in agreement with radiologist reading, No focal infiltrate Radiology Impression Discussion of test interpretation with radiology: I have reviewed the radiologist's reading. Radiologist Impression: EXAMINATION: XR CHEST CLINICAL INFORMATION: Cough COMPARISON: 05/21/2021 TECHNIQUE: Frontal view of the chest was obtained. FINDINGS: Lungs are well expanded and clear. No consolidation, pleural effusion or pneumothorax. The old hazy opacities at the medial bases correspond to the normal paracardiac fat pads. Cardiac silhouette has normal size and contour. The skeletal structures are unremarkable. XR/XR chest 1V IMPRESSION: No evidence of pneumonia. No acute cardiopulmonary findings. External Record Review External record reviewed: Prior outpatient labs Prescription Management I considered prescription management with: Antibiotic Chronic Conditions Patient?s care impacted by: Other Alcohol use disorder, anxiety Social Determinants Patient?s care significantly limited by Social Determinants of Health including: Problems related to primary support group and Other Social Determinant of Health Critical Care Time Critical Care Time Critical Care Time: No Discharge Plan Discharge Clinical Impression: Bronchitis Patient Disposition: Home, Self-Care Instructions: Acute Bronchitis (ED) Additional Instructions: Your chest x-ray did not show any evidence of pneumonia. Your negative for COVID and flu. Your blood work was reassuring Take the prescribed antibiotics as directed, complete the entire course and do not miss any doses Rest and drink plenty of fluids. Do your best to cut back on smoking. Recommend following up with your doctor. If you develop new or worsening symptoms call 911 or come back to the ER for further evaluation. Prescriptions: New amoxicillin-pot clavulanate 875-125 mg tablet 1 tab PO BID Qty: 14 0RF prednisone 20 mg tablet 40 mg PO DAILY Qty: 10 0RF No Action clonidine HCl 0.1 mg tablet 0.1 mg PO TID 7 Days Qty: 21 0RF hydroxyzine HCl 25 mg tablet 25 mg PO TID PRN (Reason: itching) 10 Days Qty: 30 0RF naltrexone 50 mg tablet 50 mg PO DAILY Qty: 30 0RF folic acid 1 mg tablet 1 mg PO DAILY 30 Days Qty: 30 5RF thiamine HCl (vitamin B1) 50 mg tablet 50 mg PO DAILY Qty: 30 5RF Vivitrol 380 mg suspension,extended rel recon 380 mg IM Q4W 30 Days Qty: 1 5RF Stand Alone Forms: Work/School Release Interventions: ED Discharge Assessment Last Done: 04/01/23 11:34 Discharge Date/Time: 04/01/23 11:35
[2023-04-01 10:53] LABS: IDNOW Serial# 08D9AD1C; Influenza A Negative (Negative); Influenza B2 Negative (Negative)
[2023-04-01 10:54] LABS: COVID-19 Test Negative (Negative); IDNOW Serial# BCCEAD1C
== END 2023-04-01 11:35 | disposition home or self-care (01) ==
PROVIDERS: Physician Assistant; Emergency Provider Emergency Medicine
DX: J40 Bronchitis, not specified as acute or chronic (principal); Z20.822 Contact with and (suspected) exposure to COVID-19; F17.200 Nicotine dependence, unspecified, uncomplicated
CPT/HCPCS: 36415; 71045; 80053; 85025; 87502; 87635; 93005; 99283